=== PATIENT | female | born 1980 | race Caucasian/White ===

== ENCOUNTER 2017-08-14 15:56 | Outpatient (CLI) | payer OTHER ==
--- NOTE | 2017-08-19 09:08 | Ultrasound Report ---
ULTRASOUND PELVIS COMPLETE - TRANSABDOMINAL AND TRANSVAGINAL: INDICATION: Heavy vaginal bleeding x 1 month. COMPARISON: None similar. FINDINGS: Transabdominal and transvaginal pelvic sonography performed in this patient with irregular cycles demonstrates a 11.7 x 5 x 7.4 cm anteverted, heterogeneous uterus with an approximately 3 cm fibroid superiorly to the left, endovaginal image 10. Echogenic endometrial thickness towards the fundus approximately 1.2 cm, endovaginal image 15. However, lower uterine segment endometrium appears thickened with a complex, mixed solid and cystic appearance, measuring approximately 3.7 x 2 x 2.5 cm as on endovaginal images 18-24 with increased blood flow. A 1 cm nabothian cyst also seen. No significant pelvic free fluid. Normal, 2.7 x 1.8 x 2.5 cm right ovary. Left ovary is 4.5 x 2.7 x 4.2 cm with a 2.5 cm slightly complex/hemorrhagic cyst. CONCLUSION: 1. Myomatous uterus with a nonspecific, complex, hypervascular lower uterine segment area, as detailed above, that in isolation simulates retained products of conception or gestational trophoblastic disease. Other findings, including endometrial hyperplasia or even carcinoma also not entirely excluded at this time. TONE REGULATOR correlation and/or additional evaluation as MRI may be obtained, as appropriate. 2. Both ovaries visualized. Please note that this exam is now available to me for interpretation. Thank you for the opportunity to participate in this patient's care.
== END 2017-08-14 15:57 | disposition home or self-care (01) ==
LOC: US 15:56
PROVIDERS: ATTEND Nurse Practitioner
DX: D25.9 Leiomyoma of uterus, unspecified (principal); N88.8 Other specified noninflammatory disorders of cervix uteri; N93.9 Abnormal uterine and vaginal bleeding, unspecified
CPT/HCPCS: 76830; 76856

== ENCOUNTER 2018-10-28 17:12 | Inpatient (IN) | payer MEDICARE ==
[2018-10-28] MEDS ORDERED: TYLENOL PO ONE (17:37)
[2018-10-28] MEDS ORDERED: NACL 0.9% 1000 ML 1,000 ML IV ONE ×2 (17:37→20:00)
--- NOTE | 2018-10-28 17:51 | Emergency Department Report ---
HPI - General Chief Complaint: Vaginal Bleeding Time Seen by Provider: 10/28/18 17:36 - HPI HPI: Room 4 The patient is a 38-year-old female presenting with a chief complaint of pelvic pain and vaginal bleeding. The patient states she is and started having left-sided abdominal pain yesterday. The patient states she went to an outside hospital had an ultrasound performed which was normal and was diagnosed with UTI. Patient states after she left she had vaginal bleeding and then earlier today she noticed some tissue protruding from the vagina which then ruptured. The patient states she's gone through 1 pad today Location: Pelvis Duration: [See above] Quality: Pain Severity: Moderate Modifying factors: [see above] Context: [see above] Mode of transportation: [not driving] ED Past Medical Hx - Past Medical History Hx Arthritis: Yes Additional medical history: lupus - Surgical History Past Surgical History?: Yes Additional Surgical History: c-sectionx1 - Family History Family history: no significant - Social History Smoking Status: Never Smoker Substance Use Type: None - Medications Home Medications: Home Medications Medication Instructions Recorded Confirmed Last Taken Type RX: Hydroxychloroquine [Plaquenil] 200 mg PO DAILY 09/29/13 10/28/18 Unknown History predniSONE [Prednisone] 1 tab PO DAILY 10/28/18 10/28/18 Unknown History Amoxicillin/Potassium Clav 1 each PO BID 5 Days tablet 10/31/18 Unknown Rx [Augmentin 875-125 Tablet] ED Review of Systems ROS: Stated complaint: POSSIBLE MISCARRIAGE Other details as noted in HPI Constitutional: no symptoms reported Eyes: denies: eye pain ENT: denies: throat pain Respiratory: no symptoms reported Cardiovascular: denies: chest pain Gastrointestinal: abdominal pain Genitourinary: abnormal menses Musculoskeletal: denies: back pain Neurological: denies: headache Physical Exam - Physical Exam Vital Signs: Vital Signs 10/28/18 17:29 Temperature 100.3 F H Pulse Rate 128 H Respiratory 16 Rate Blood Pressure 136/83 O2 Sat by Pulse 100 Oximetry Physical Exam: GENERAL: The patient is well-developed well-nourished female lying on stretcher not appearing to be in acute distress. [] HEENT: Normocephalic. Atraumatic. Extraocular motions are intact. Patient has moist mucous membranes. NECK: Supple. Trachea midline CHEST/LUNGS: Clear to auscultation. There is no respiratory distress noted. HEART/CARDIOVASCULAR: Regular. There is tachycardia. There is no gallop rub or murmur. ABDOMEN: Abdomen is soft, with tenderness to palpation in the left lower quadrant, left upper quadrant. Palpation of the right upper quadrant and right lower quadrant causes pain in the left lower quadrant.. Patient has normal bowel sounds. There is no abdominal distention. SKIN: There is no rash. There is no edema. There is no diaphoresis. NEURO: The patient is awake, alert, and oriented. The patient is cooperative. The patient has normal speech MUSCULOSKELETALThere is no evidence of acute injury. ED Course Vital Signs 10/28/18 17:29 Temperature 100.3 F H Pulse Rate 128 H Respiratory 16 Rate Blood Pressure 136/83 O2 Sat by Pulse 100 Oximetry - Consultations Consultation #1: 10/28/18 19:58 OFFICE SERVICES COORDINATOR paged-case discussed with dispensing optician Trena-states will admit the patient ED Medical Decision Making - Lab Data Result diagrams: 10/29/18 22:58 10/29/18 07:49 - Differential Diagnosis incomplete Critical care attestation.: If time is entered above; I have spent that time in minutes in the direct care of this critically ill patient, excluding procedure time. ED Disposition Clinical Impression: demise, Tachycardia Disposition: - OP ADMIT IP TO THIS HOSP Is pt being admited?: Yes Does the pt Need Aspirin: No Condition: Good
[2018-10-28 18:00] LABS: Basophils % (Auto) 0.3 % (0.0-1.8); Eosinophils % (Auto) 0.1 % (0.0-4.3); Hematocrit 36.9 % (30.3-42.9); Hemoglobin 12.2 gm/dl (10.1-14.3); Lymphocytes # (Auto) 0.6 K/mm3 (1.2-5.4); Lymphocytes % (Auto) 6.1 % (13.4-35.0); Mean Corpuscular HGB Conc 33 % (30-34); Mean Corpuscular Volume 87 fl (79-97); Monocytes # (Auto) 0.4 K/mm3 (0.0-0.8); Monocytes % (Auto) 4.6 % (0.0-7.3); Platelet Count 209 K/mm3 (140-440); Red Blood Count 4.25 M/mm3 (3.65-5.03); Red Cell Distribution Width 15.5 % (13.2-15.2)
[2018-10-28 18:23] LABS: BUN/Creatinine Ratio 13; Blood Urea Nitrogen 5 mg/dL (7-17); Calcium 8.2 mg/dL (8.4-10.2); Hemolysis Index 22
[2018-10-28 20:05] LABS: Bilirubin,Urine NEG (Negative); Blood,Urine LG (Negative); Color,Urine Red (Yellow); Mucus,Urine FEW /HPF; Urobilinogen,Urine < 2.0 mg/dL (<2.0)
[2018-10-28] MEDS ORDERED: XYLOCAINE 2% INFILTRATI ONE (20:05)
[2018-10-28] MEDS ORDERED: MINERAL OIL PO PRN (20:05)
[2018-10-28] MEDS ORDERED: AMPICILLIN IV ONE (20:07)
[2018-10-28] MEDS ORDERED: NACL 0.9% 1000 ML IV ONE (20:07)
[2018-10-28] MEDS ORDERED: NACL 0.9% IV ONE (20:07)
[2018-10-28 20:10] LABS: RBC,Urine > 182.0 /HPF (0.0-6.0)
[2018-10-28] MEDS ORDERED: NACL 0.9% IV STA (20:14)
[2018-10-28] MEDS ORDERED: GENTAMICIN IV STA (20:14)
[2018-10-28] MEDS: SUBLIMAZE IV PRN (20:30)
--- NOTE | 2018-10-28 20:34 | Ultrasound Report ---
FINAL REPORT PROCEDURE: Obstetrical ultrasound. TECHNIQUE: Real-time transabdominal sonography of the uterus, placenta, amniotic fluid, adnexa, and fetus was performed with image documentation. Measurements were obtained to determine age/size. M-mode Doppler was used to document heartbeat. CPT 46827 HISTORY: Vaginal bleeding, left lower abdominal pain. COMPARISON: No prior studies are available for comparison. FINDINGS: There is an intrauterine fetus in cephalic presentation. There is no cardiac activity identified. The re is no amniotic fluid present. The cervix measures 4.3 centimeters in length. The measured pa rameters are approximately the following: Biparietal diameter 3.0 centimeters, head circumference 11. 2 centimeters, abdominal circumference 8.1 centimeters, femur length 1.9 centimeters. The calculated menstrual age is approximately 15 weeks 2 days. The placenta is posterior in location. There may be a uterine fibroid present in the left side of the uterus. IMPRESSION: Intrauterine demise.
[2018-10-28 20:39] LABS: Amphetamine Screen,Urine PRESUMPTIVE NEGATIVE; Benzodiazepines Screen,Urine PRESUMPTIVE NEGATIVE; Cannabinoid Screen,Urine PRESUMPTIVE NEGATIVE; Cocaine Screen,Urine PRESUMPTIVE NEGATIVE; Methadone Screen,Urine PRESUMPTIVE NEGATIVE
[2018-10-28] MEDS ORDERED: PITOCin/NS 30 UNIT/500ML 30 UNITS/500 ML BAG IV SCH ×2 (21:00→23:00)
[2018-10-28] MEDS ORDERED: AMPICILLIN/NS 2 GM/100 ML 2 GM/100 ML BAG IV ONE (21:00)
--- NOTE | 2018-10-28 21:07 | Event Note ---
Date: 10/28/18 Patient with fever, suspected intrauterine demise, clinical presentation suggestive of chorioamnionitis, with sepsis component. Patient is hemodynamically stable at this point in time. Reports that her "allergy" to penicillin is a rash, without symptoms of anaphylaxis, or anaphylactoid reaction, and reports she is not received penicillin and many years. Patient will be admitted to the obstetric service, under the care of Dr. Tenzin Orellana, she will be given IV fluids, ampicillin, gentamicin, blood cultures, lactic acid will be drawn. Patient was informed of need for admission for the aforementioned therapies. Vital Signs 10/28/18 10/28/18 10/28/18 17:29 17:40 17:45 Temperature 100.3 F H Pulse Rate 128 H 131 H 122 H Respiratory 16 17 25 H Rate Blood Pressure 136/83 Blood Pressure [Left] O2 Sat by Pulse 100 Oximetry 10/28/18 10/28/18 20:00 20:40 Temperature 97.8 F Pulse Rate 115 H Respiratory 24 24 Rate Blood Pressure 117/76 Blood Pressure 117/76 [Left] O2 Sat by Pulse 100 Oximetry Lab Results 10/28/18 10/28/18 10/28/18 Range/Units 17:43 17:43 17:43 WBC 9.4 (4.5-11.0) K/mm3 RBC 4.25 (3.65-5.03) M/mm3 Hgb 12.2 (10.1-14.3) gm/dl Hct 36.9 (30.3-42.9) % MCV 87 (79-97) fl MCH 29 (28-32) pg MCHC 33 (30-34) % RDW 15.5 H (13.2-15.2) % Plt Count 209 (140-440) K/mm3 Lymph % (Auto) 6.1 L (13.4-35.0) % Bond % (Auto) 4.6 (0.0-7.3) % Eos % (Auto) 0.1 (0.0-4.3) % Baso % (Auto) 0.3 (0.0-1.8) % Lymph # 0.6 L (1.2-5.4) K/mm3 Bond # 0.4 (0.0-0.8) K/mm3 Eos # 0.0 (0.0-0.4) K/mm3 Baso # 0.0 (0.0-0.1) K/mm3 Seg Neutrophils % 88.9 H (40.0-70.0) % Seg Neutrophils # 8.4 H (1.8-7.7) K/mm3 Sickle Cell Screen (Negative) Sodium 135 L (137-145) mmol/L Potassium 4.0 (3.6-5.0) mmol/L Chloride 101.2 (98-107) mmol/L Carbon Dioxide 18 L (22-30) mmol/L Anion Gap 20 mmol/L BUN 5 L (7-17) mg/dL Creatinine 0.4 L (0.7-1.2) mg/dL Estimated GFR > 60 ml/min BUN/Creatinine Ratio 13 % Glucose 97 (65-100) mg/dL Calcium 8.2 L (8.4-10.2) mg/dL HCG, Quant 49608 H (0-4) mIU/mL Urine Color (Yellow) Urine Turbidity (Clear) Urine pH (5.0-7.0) Ur Specific [place] (1.003-1.030) Urine Protein (Negative) mg/dL Urine Glucose (UA) (Negative) mg/dL Urine Ketones (Negative) mg/dL Urine Blood (Negative) Urine Nitrite (Negative) Urine Bilirubin (Negative) Urine Urobilinogen (<2.0) mg/dL Ur Leukocyte Esterase (Negative) Urine WBC (Auto) (0.0-6.0) /HPF Urine RBC (Auto) (0.0-6.0) /HPF U Epithel Cells (Auto) (0-13.0) /HPF Urine Mucus /HPF Urine Methadone Screen Ur Barbiturates Screen Ur Phencyclidine Scrn Ur Amphetamines Screen U Benzodiazepines Scrn Urine Cocaine Screen U Marijuana (THC) Screen HIV 1&2 Antibody Rapid (Non React) HIV P24 Antigen (Non React) Blood Type Ord Rhogam Gestat Weeks WEEKS 10/28/18 10/28/18 10/28/18 Range/Units 17:43 19:44 19:44 WBC (4.5-11.0) K/mm3 RBC (3.65-5.03) M/mm3 Hgb (10.1-14.3) gm/dl Hct (30.3-42.9) % MCV (79-97) fl MCH (28-32) pg MCHC (30-34) % RDW (13.2-15.2) % Plt Count (140-440) K/mm3 Lymph % (Auto) (13.4-35.0) % Bond % (Auto) (0.0-7.3) % Eos % (Auto) (0.0-4.3) % Baso % (Auto) (0.0-1.8) % Lymph # (1.2-5.4) K/mm3 Bond # (0.0-0.8) K/mm3 Eos # (0.0-0.4) K/mm3 Baso # (0.0-0.1) K/mm3 Seg Neutrophils % (40.0-70.0) % Seg Neutrophils # (1.8-7.7) K/mm3 Sickle Cell Screen (Negative) Sodium (137-145) mmol/L Potassium (3.6-5.0) mmol/L Chloride (98-107) mmol/L Carbon Dioxide (22-30) mmol/L Anion Gap mmol/L BUN (7-17) mg/dL Creatinine (0.7-1.2) mg/dL Estimated GFR ml/min BUN/Creatinine Ratio % Glucose (65-100) mg/dL Calcium (8.4-10.2) mg/dL HCG, Quant (0-4) mIU/mL Urine Color Red (Yellow) Urine Turbidity Clear (Clear) Urine pH 7.0 (5.0-7.0) Ur Specific [place] 1.005 (1.003-1.030) Urine Protein 100 mg/dl (Negative) mg/dL Urine Glucose (UA) 50 (Negative) mg/dL Urine Ketones 20 (Negative) mg/dL Urine Blood Lg (Negative) Urine Nitrite Neg (Negative) Urine Bilirubin Neg (Negative) Urine Urobilinogen < 2.0 (<2.0) mg/dL Ur Leukocyte Esterase Sm (Negative) Urine WBC (Auto) 64.0 H (0.0-6.0) /HPF Urine RBC (Auto) > 182.0 (0.0-6.0) /HPF U Epithel Cells (Auto) 2.0 (0-13.0) /HPF Urine Mucus Few /HPF Urine Methadone Screen Presumptive negative Ur Barbiturates Screen Presumptive negative Ur Phencyclidine Scrn Presumptive negative Ur Amphetamines Screen Presumptive negative U Benzodiazepines Scrn Presumptive negative Urine Cocaine Screen Presumptive negative U Marijuana (THC) Screen Presumptive negative HIV 1&2 Antibody Rapid (Non React) HIV P24 Antigen (Non React) Blood Type O POSITIVE Ord Rhogam Gestat Weeks Rh pos WEEKS 10/28/18 10/28/18 Range/Units 20:18 20:18 WBC (4.5-11.0) K/mm3 RBC (3.65-5.03) M/mm3 Hgb (10.1-14.3) gm/dl Hct (30.3-42.9) % MCV (79-97) fl MCH (28-32) pg MCHC (30-34) % RDW (13.2-15.2) % Plt Count (140-440) K/mm3 Lymph % (Auto) (13.4-35.0) % Bond % (Auto) (0.0-7.3) % Eos % (Auto) (0.0-4.3) % Baso % (Auto) (0.0-1.8) % Lymph # (1.2-5.4) K/mm3 Bond # (0.0-0.8) K/mm3 Eos # (0.0-0.4) K/mm3 Baso # (0.0-0.1) K/mm3 Seg Neutrophils % (40.0-70.0) % Seg Neutrophils # (1.8-7.7) K/mm3 Sickle Cell Screen Negative (Negative) Sodium (137-145) mmol/L Potassium (3.6-5.0) mmol/L Chloride (98-107) mmol/L Carbon Dioxide (22-30) mmol/L Anion Gap mmol/L BUN (7-17) mg/dL Creatinine (0.7-1.2) mg/dL Estimated GFR ml/min BUN/Creatinine Ratio % Glucose (65-100) mg/dL Calcium (8.4-10.2) mg/dL HCG, Quant (0-4) mIU/mL Urine Color (Yellow) Urine Turbidity (Clear) Urine pH (5.0-7.0) Ur Specific [place] (1.003-1.030) Urine Protein (Negative) mg/dL Urine Glucose (UA) (Negative) mg/dL Urine Ketones (Negative) mg/dL Urine Blood (Negative) Urine Nitrite (Negative) Urine Bilirubin (Negative) Urine Urobilinogen (<2.0) mg/dL Ur Leukocyte Esterase (Negative) Urine WBC (Auto) (0.0-6.0) /HPF Urine RBC (Auto) (0.0-6.0) /HPF U Epithel Cells (Auto) (0-13.0) /HPF Urine Mucus /HPF Urine Methadone Screen Ur Barbiturates Screen Ur Phencyclidine Scrn Ur Amphetamines Screen U Benzodiazepines Scrn Urine Cocaine Screen U Marijuana (THC) Screen HIV 1&2 Antibody Rapid Non react (Non React) HIV P24 Antigen Non react (Non React) Blood Type Ord Rhogam Gestat Weeks WEEKS
[2018-10-28 21:58] LABS: Hepatitis C Virus Antibody Non-Reactive (NonReactive)
[2018-10-28] MEDS: CLEOCIN 900 MG/50 mL 900 MG/50 ML BAG IV SCH (22:13)
[2018-10-28 22:24] LABS: Opiate Screen,Urine PRESUMPTIVE POSITIVE
--- NOTE | 2018-10-28 22:29 | History and Physical Report ---
History of Present Illness Date of examination: 10/28/18 Date of admission: 10/28/18 20:05 Chief complaint: PPROM @ 1600, IUFD by u/s in ED History of present illness: pt receives care with Dr. Flores. reports hx Lupus and arthritis Pt denies hx DVT reports surgical hx c/s 2000 OB hx: , EDC 04/06/19 1994, 1996 c/s 2000 2002, 2003, 2006, 2014 Pt reports seeing [facility] and Dr. Flores for regular care. She was seen in the ED AT [facility] yesterday and dx with UTI. States u/s showed normal . She was given pain medication. pt reports EDC 04/06/19 by provider which makes her 17w1 u/s in ED tonight shows gestational age as 15w2 Past History Past Medical History: other (Lupus & Arthritis ) Past Surgical History: section (2000) Social history: - Obstetrical History Expected Date of Delivery: 04/06/19 Actual Gestation: 17 Week(s) 1 Day(s) : 8 Para: 7 Hx # Term Pregnancies: 7 Number of Pregnancies: 0 Spontaneous Abortions: 0 Induced : 0 Number of Living Children: 7 Medications and Allergies Allergies Allergy/AdvReac Type Severity Reaction Status Date / Time Penicillins Allergy Hives Verified 09/29/13 03:20 Home Medications Medication Instructions Recorded Confirmed Last Taken Type RX: Hydroxychloroquine [Plaquenil] 200 mg PO DAILY 09/29/13 10/28/18 Unknown History predniSONE [Prednisone] 1 tab PO DAILY 10/28/18 10/28/18 Unknown History Active Meds: Active Medications Fentanyl (Sublimaze) 100 mcg IV Q2H PRN PRN Reason: Labor Pain Lactated Ringer's (Lactated Ringers) 1,000 mls @ 125 mls/hr IV DIRECT RACHEL Clindamycin HCl (Cleocin 900 Mg/50 Ml) 900 mg in 50 mls @ 100 mls/hr IV Q8HR RACHEL; Protocol Last Admin: 10/28/18 22:13 Dose: 100 mls/hr Documented by: Oxytocin/Sodium Chloride (Pitocin/Ns 30 Unit/500ml) 30 units in 500 mls @ 4 mls/hr IV TITR RACHEL; Protocol Mineral Oil (Mineral Oil) 30 ml PO QHS PRN PRN Reason: Constipation Review of Systems All systems: negative - Vital Signs Vital signs: Vital Signs Temp Pulse Resp BP Pulse Ox 100.3 F H 128 H 16 136/83 100 10/28/18 17:29 10/28/18 17:29 10/28/18 17:29 10/28/18 17:29 10/28/18 17:29 Temp Pulse Resp BP Pulse Ox 97.8 F 112 H 22 116/67 100 10/28/18 20:40 10/28/18 21:00 10/28/18 21:00 10/28/18 21:00 10/28/18 20:40 - Physical Exam Breasts: Positive: normal Cardiovascular: Other (tachycardia) Lungs: Positive: Clear to auscultation, Normal air movement Abdomen: Positive: normal appearance, soft Genitourinary (Female): Positive: normal external genitalia, normal perenium Vulva: both: normal Vagina: Positive: normal moisture (+ Fluid and blood show) Anus/Rectum: Positive: normal perianal skin Extremities: Positive: normal - Obstetrical Uterine Contraction Monitor Mode: Palpation Cervical Dilatation: 3 Cervical Effacement Percentage: 50 station: -3 Uterine Contraction Frequency (min): 2-3 Uterine Contraction Pattern: Regular Uterine Tone Measurement Phase: Contraction Results Result Diagrams: 10/28/18 17:43 10/28/18 17:43 Abnormal lab results 10/28/18 10/28/18 10/28/18 Range/Units 17:43 17:43 17:43 RDW 15.5 H (13.2-15.2) % Lymph % (Auto) 6.1 L (13.4-35.0) % Lymph # 0.6 L (1.2-5.4) K/mm3 Seg Neutrophils % 88.9 H (40.0-70.0) % Seg Neutrophils # 8.4 H (1.8-7.7) K/mm3 Sodium 135 L (137-145) mmol/L Carbon Dioxide 18 L (22-30) mmol/L BUN 5 L (7-17) mg/dL Creatinine 0.4 L (0.7-1.2) mg/dL Calcium 8.2 L (8.4-10.2) mg/dL HCG, Quant 71145 H (0-4) mIU/mL Urine WBC (Auto) (0.0-6.0) /HPF 10/28/18 Range/Units 19:44 RDW (13.2-15.2) % Lymph % (Auto) (13.4-35.0) % Lymph # (1.2-5.4) K/mm3 Seg Neutrophils % (40.0-70.0) % Seg Neutrophils # (1.8-7.7) K/mm3 Sodium (137-145) mmol/L Carbon Dioxide (22-30) mmol/L BUN (7-17) mg/dL Creatinine (0.7-1.2) mg/dL Calcium (8.4-10.2) mg/dL HCG, Quant (0-4) mIU/mL Urine WBC (Auto) 64.0 H (0.0-6.0) /HPF All other labs normal. Assessment and Plan 38y/o admitted for suspected chorio, PPROM @ 1600, demise with SAB in progress. States she has been having abd pain since yesterday. Dr. Orellana consulted. Will start IV Cleocin and Gent. Plan discussed with patient regarding dx. Will start pitocin, epidural and IV sedation as needed. All questions addressed, pt and spouse verbalize understanding. - Patient Problems (1) Inevitable spontaneous Current Visit: Yes Status: Acute (2) Chorioamnionitis in second trimester Onset Date: ~10/28/18 Current Visit: Yes Status: Acute Qualifiers: Fetus number: single or unspecified fetus Qualified Code(s): O41.1220 - Chorioamnionitis, second trimester, not applicable or unspecified (3) demise Current Visit: Yes Status: Acute (4) Lupus (systemic lupus erythematosus) Current Visit: Yes Status: Acute (5) Previous section Current Visit: Yes Status: Acute (6) Tachycardia Current Visit: Yes Status: Acute
[2018-10-29] MEDS: SUBLIMAZE IV PRN ×4 (00:05→08:12)
[2018-10-29] MEDS ORDERED: ZOFRAN ONE (00:16)
[2018-10-29] MEDS ORDERED: ZOFRAN IV ONE (00:32)
[2018-10-29] MEDS ORDERED: PITOCin/NS 20 UNIT/1000ML DRIP 20,000 MILLIUNITS/1,000 ML BAG IV ONE ×2 (01:32→08:12)
[2018-10-29] MEDS ORDERED: STADOL IV PRN (02:04)
--- NOTE | 2018-10-29 02:04 | Procedure Note ---
<NYLA POE - Last Filed: 10/29/18 03:37> OB Delivery Note - Delivery Date of Delivery: 10/29/18 Plant Operations Worker: NYLA POE Estimated blood loss: 200cc - Vaginal Delivery presentation: unknown (funic) Intrapartum events: other(please specify) (17 weeks demise) Delivery augmentation: pitocin Delivery comments: baby del spontaneously @ 0153. Cord clamped, waiting on placenta. Pitocin continues. Bleeding scant at this time. Bonding encouraged, grief is appropriate. - A at 1 minute: 0 at 5 minutes: 0 Infant Gender: Male (115gms) <DEVON JARVIS - Last Filed: 10/29/18 06:06> OB Delivery Note - Vaginal Delivery comments: Arrived to assess pt She was c/o increased pain and pressure. Placenta easily delivered. Swept the uterus [place] small amt of placenta remaining. Removed with ring forceps. Pt tolerated well. Will monitor bleeding and for any sign of retained POC Placenta to pathology. made aware of event. Will continue pt on ABX
[2018-10-29] MEDS ORDERED: STADOL IV ONE (03:07)
[2018-10-29] MEDS: CLEOCIN 900 MG/50 mL 900 MG/50 ML BAG IV SCH (06:11)
[2018-10-29] MEDS ORDERED: TYLENOL PO ONE (06:51)
--- NOTE | 2018-10-29 06:56 | Event Note ---
Addendum entered and electronically signed by DEVON JARVIS CNM 10/29/18 07:07: Consulted with CT of the abdomen and pelvis w and w/o contrast ordered. Original Note: Date: 10/29/18 (post del check) Temp 101.9 Abdomen tender Pt guarding. Minimal vaginal bleeding noted. ABX continued. Tylenol 1,000mg given po. notified.
[2018-10-29] MEDS ORDERED: GENTAMICIN 80 MG in NACL 0.9% 100 ML IV SCH (07:00)
--- NOTE | 2018-10-29 07:33 | Progress Note ---
Assessment and Plan - Patient Problems (1) Endometritis Current Visit: Yes Status: Acute Plan to address problem: ID consult Subjective - Subjective Date of service: 10/29/18 Principal diagnosis: s/p IUFD at 17 weeks, endometritis Interval history: Patient states pain she has now is the same pain she has had in abdomen/pelvis since Saturday, she denies N/V. She was evaluated at [facility] and diagnosed with UTI and was given PO antibiotics. Patient reports: appetite normal Objective - Vital Signs Latest vital signs: Vital Signs Temp Pulse Resp BP BP Pulse Ox 10/29/18 07:25 121 H 120/71 10/29/18 07:20 99.7 F H 10/29/18 07:10 117 H 111/63 10/29/18 06:55 116 H 111/66 10/29/18 06:40 115 H 114/66 10/29/18 06:25 114 H 113/66 10/29/18 06:10 116 H 117/69 10/29/18 06:00 101.9 F H 10/29/18 05:55 139 H 127/72 10/29/18 05:53 18 10/29/18 05:40 121 H 127/72 10/29/18 05:25 114 H 130/76 10/29/18 05:10 109 H 130/75 10/29/18 04:55 113 H 133/74 10/29/18 04:40 117 H 124/71 10/29/18 04:25 115 H 123/70 10/29/18 04:10 112 H 120/69 10/29/18 03:55 112 H 123/71 10/29/18 03:40 117 H 123/78 10/29/18 03:25 125 H 120/73 10/29/18 03:15 18 10/29/18 03:10 126 H 122/73 10/29/18 02:55 114 H 120/78 10/29/18 02:40 105 H 118/81 10/29/18 02:25 109 H 117/74 10/29/18 02:10 110 H 130/73 10/29/18 01:55 111 H 133/77 10/29/18 01:35 18 10/29/18 00:35 20 10/29/18 00:13 100 H 132/80 10/29/18 00:05 18 10/28/18 23:24 122 H 145/89 10/28/18 21:00 112 H 18 116/67 10/28/18 20:40 97.8 F 24 117/76 100 10/28/18 20:30 18 10/28/18 20:00 115 H 24 117/76 10/28/18 17:45 122 H 25 H 10/28/18 17:40 131 H 17 10/28/18 17:29 100.3 F H 128 H 16 136/83 100 Intake and Output 10/28/18 10/29/18 10/29/18 22:59 06:59 14:59 Intake Total 50 Balance 50 Intake: IV 50 CLEOCIN 900 MG/50 mL 900 50 mg In 50 ml @ 100 mls/hr IV Q8HR [facility] Rx#:[id number] Other: Weight 72.575 kg - Exam Breasts: Present: deferred Lungs: Present: Clear to auscultation, Normal air movement Abdomen: Present: soft, normal bowel sounds. Absent: tenderness (when palpating with stethoscope) Uterus: Present: other (difficult to palpate d/t obesity) Extremities: Present: normal. Absent: tenderness, edema - Labs Labs: Abnormal lab results 10/28/18 10/28/18 10/28/18 Range/Units 17:43 17:43 17:43 RDW 15.5 H (13.2-15.2) % Lymph % (Auto) 6.1 L (13.4-35.0) % Lymph # 0.6 L (1.2-5.4) K/mm3 Seg Neutrophils % 88.9 H (40.0-70.0) % Seg Neutrophils # 8.4 H (1.8-7.7) K/mm3 Sodium 135 L (137-145) mmol/L Carbon Dioxide 18 L (22-30) mmol/L BUN 5 L (7-17) mg/dL Creatinine 0.4 L (0.7-1.2) mg/dL Calcium 8.2 L (8.4-10.2) mg/dL HCG, Quant 34275 H (0-4) mIU/mL Urine WBC (Auto) (0.0-6.0) /HPF 10/28/18 Range/Units 19:44 RDW (13.2-15.2) % Lymph % (Auto) (13.4-35.0) % Lymph # (1.2-5.4) K/mm3 Seg Neutrophils % (40.0-70.0) % Seg Neutrophils # (1.8-7.7) K/mm3 Sodium (137-145) mmol/L Carbon Dioxide (22-30) mmol/L BUN (7-17) mg/dL Creatinine (0.7-1.2) mg/dL Calcium (8.4-10.2) mg/dL HCG, Quant (0-4) mIU/mL Urine WBC (Auto) 64.0 H (0.0-6.0) /HPF
[2018-10-29 08:05] LABS: Basophils % (Auto) 0.1 % (0.0-1.8); Hemoglobin 9.4 gm/dl (10.1-14.3); Lymphocytes # (Auto) 0.7 K/mm3 (1.2-5.4); Lymphocytes % (Auto) 6.6 % (13.4-35.0); Mean Corpuscular HGB Conc 34 % (30-34); Mean Corpuscular Volume 87 fl (79-97); Monocytes # (Auto) 0.6 K/mm3 (0.0-0.8); Monocytes % (Auto) 5.4 % (0.0-7.3); Platelet Count 166 K/mm3 (140-440); Red Blood Count 3.21 M/mm3 (3.65-5.03); Red Cell Distribution Width 15.6 % (13.2-15.2)
[2018-10-29 08:48] LABS: Albumin 2.4 g/dL (3.9-5)
[2018-10-29] MEDS ORDERED: PITOCin/NS 20 UNIT/1000ML DRIP 20 UNITS/1,000 ML BAG IV SCH (09:00)
[2018-10-29 09:09] LABS: BUN/Creatinine Ratio 13; Blood Urea Nitrogen 4 mg/dL (7-17); Hemolysis Index 34
--- NOTE | 2018-10-29 09:15 | Event Note ---
Date: 10/29/18 s/w Dr. Delacruz who recommends antibiotic change, see orders
[2018-10-29 09:22] LABS: Alanine Aminotransferase 7 units/L (7-56)
--- NOTE | 2018-10-29 09:33 | Cat Scan Report ---
CT ABDOMEN PELVIS WITH CONTRAST: HISTORY: Evaluate for abscess. COMPARISON: OB ultrasound dated 10/28/18. Noncontrast CT abdomen and pelvis dated . TECHNIQUE: Helical CT in 1.25mm intervals following IV contrast. Sagittal and coronal reconstructions. FINDINGS: Lung bases: Normal heart size. Minor bibasilar atelectatic changes are noted. Liver: Normal. Biliary system: There are multiple small calcified gallstones within the gallbladder. The largest stone measures 6 mm. No evidence for gallbladder wall thickening, inflammation or surrounding fluid. No biliary dilatation. Pancreas: Normal. Spleen: Normal. Kidneys/ureters/bladder: There is moderate right hydronephrosis. This appears to be secondary to external compression in the pelvis from the enlarged uterus. There is no evidence for renal cystic disease, calculus or mass. The left collecting system and bladder are unremarkable. Adrenal glands: Normal. Aorta: Normal. Intestines: Within normal limits. Appendix: Not confidently identified. Pelvic viscera: The uterus is markedly enlarged measuring 16.6 x 9.3 x 15.9. There is a hypodense round mass like lesion in the left lateral wall of the uterus measuring 10 cm in diameter. This presumably represents a large fibroid with cystic degeneration although it is new since the CT of abdomen and pelvis from 2012. The endometrium is markedly thickened and complex with irregular borders. The endometrial stripe measures 4.2 cm in thickness. I believe I see the ovaries which are unremarkable. Ascites: Trace. Adenopathy: None. Musculoskeletal: Intact. IMPRESSION: The uterus is markedly enlarged as described. There appears to be a large fibroid in the left lateral wall measuring up to 10 cm. The endometrium is markedly abnormal demonstrating thickening and irregular borders. The significance of this is unclear. This could represent hemorrhagic products or possibly an early infectious process. No endometrial gas is identified. Moderate right hydronephrosis which appears to be secondary to external compression of the distal right ureter from the uterus. Cholelithiasis. No pelvic abscess is identified.
[2018-10-29] MEDS ORDERED: GENTAMICIN IV SCH (10:00)
[2018-10-29] MEDS ORDERED: NACL 0.9% IV SCH (10:00)
--- NOTE | 2018-10-29 10:55 | Consultation ---
History of Present Illness - Reason for Consult Consult date: 10/29/18 Sepsis - History of Present Illness This patient is a 38 year old female that was admitted to [facility] on 10/28 2018 for suspected PPROM. demise with SAB in progress.. Ultrasound in the ED shown gestational age at 15 weeks and 2 days. At 16 weeks, demise with SAB in progress.. Pitocin was started, baby delivered spontaneously at 0153. On 10/29/18 patient was complaining of abdominal tenderness and a CT of abdomen and pelvis were consistent with normal postpardum uterus. Today, WBC 10.2, Creatinine 0.3, Highest temperature 101.9, HR 115, BP 113/64,. U/A is consistent with a UTI Blood cultures were drawn and are in progress. Review of Systems: General: + fevers, chills no rigors HEENT: no new visual disturbance Respiratory: No cough, sputum, hemoptysis or shortness of breath Cardiovascular: No chest pain, syncope Gastrointestinal: No nausea, vomiting. left lower quadrant abdominal pain Genitourinary: No dysuria or hematuria Musculoskeletal: No new or worsening neck pain or back pain Neurologic: No headaches, seizures Hematologic: No easy bruising or bleeding Endocrine: No night sweats. Skin: negative for rash, jaundice Psychiatric: No suicidal or homicidal ideation Past History Social history: Medications and Allergies Allergies Allergy/AdvReac Type Severity Reaction Status Date / Time Penicillins Allergy Hives Verified 09/29/13 03:20 Home Medications Medication Instructions Recorded Confirmed Last Taken Type Hydroxychloroquine [Plaquenil] 200 mg PO DAILY 09/29/13 10/28/18 Unknown History predniSONE [Prednisone] 1 tab PO DAILY 10/28/18 10/28/18 Unknown History Active Meds: Active Medications Acetaminophen (Tylenol) 650 mg PO Q4H PRN PRN Reason: Pain MILD(1-3)/Fever >100.5/WOODS Acetaminophen/Hydrocodone Bitart ([place] 5/325) 2 each PO Q6H PRN PRN Reason: Pain, Moderate (4-6) Bisacodyl (Dulcolax) 10 mg SD BID PRN PRN Reason: Constipation Diphenhydramine HCl (Benadryl) 25 mg PO Q6H PRN PRN Reason: Itching Diphtheria/Tetanus/Acell Pertussis (Boostrix) 0.5 ml IM .ONCE ONE Stop: 10/30/18 10:45 Docusate Sodium (Colace) 100 mg PO BID RACHEL Hydroxychloroquine Sulfate (Plaquenil) 200 mg PO QDAY RACHEL Lactated Ringer's (Lactated Ringers) 1,000 mls @ 125 mls/hr IV DIRECT RACHEL Levofloxacin/Dextrose (Levaquin 750mg/150ml) 750 mg in 150 mls @ 100 mls/hr IV Q24HR RACHEL; Protocol Metronidazole (Flagyl 500 Mg/100 Ml) 500 mg in 100 mls @ 100 mls/hr IV Q8HR RACHEL; Protocol Ibuprofen (Motrin) 600 mg PO Q6H RACHEL Magnesium Hydroxide (Milk Of Magnesia) 30 ml PO HS PRN PRN Reason: Constipation Measles/Mumps/Rubella Vaccine Live (M-M-R Ii Vaccine) 0.5 ml SUB-Q .ONCE ONE Stop: 10/30/18 10:45 Prednisone (Deltasone) 5 mg PO QDAY RACHEL Promethazine HCl (Phenergan) 25 mg PO Q6H PRN PRN Reason: Nausea And Vomiting Sodium Chloride (Sodium Chloride Flush Syringe 10 Ml) 10 ml IV PRN NR Physical Examination - Physical Exam Narrative exam: Constitutional: Alert, cooperative. mild distress observed. Head, Ears, Nose: Normocephalic, atraumatic. External ears, nose normal Breast: no mastitis, warmth or tenderness, soft no lumps, not lactating , no nipple drainage Eyes: Conjunctivae/corneas clear. No icterus. No ptosis. Neck: Supple, no meningeal signs Oral: dentition good, no . thrush Cardiovascular: S1, S2 normal. Respiratory: Good air entry, clear to auscultation bilaterally GI: Soft, normal bowel sounds, left lower quadrant tenderness on exam, Fundus firm , + 2 below umbilicus : Moderate reddish brown locia, no odor Musculoskeletal: No pedal edema, no cyanosis. Skin: No rash or abscess. Hem/Lymphatic: No palpable cervical or supraclavicular nodes. No lymphangitis Psych: Mood ok. Affect normal Neurological: Awake, alert, oriented. - Constitutional Vitals: Vital Signs Temp Pulse Resp BP Pulse Ox 99.7 F H 118 H 18 104/63 100 10/29/18 07:20 10/29/18 08:25 10/29/18 05:53 10/29/18 08:25 10/28/18 20:40 Temperature -Last 24 Hours Temperature 99.7 F Temperature 101.9 F Temperature 97.8 F Temperature 100.3 F Results - Labs CBC & Chem 7: 10/29/18 07:49 10/29/18 07:49 Labs: Abnormal lab results 10/28/18 10/28/18 10/28/18 Range/Units 17:43 17:43 17:43 RBC (3.65-5.03) M/mm3 Hgb (10.1-14.3) gm/dl Hct (30.3-42.9) % RDW 15.5 H (13.2-15.2) % Lymph % (Auto) 6.1 L (13.4-35.0) % Lymph # 0.6 L (1.2-5.4) K/mm3 Seg Neutrophils % 88.9 H (40.0-70.0) % Seg Neutrophils # 8.4 H (1.8-7.7) K/mm3 Sodium 135 L (137-145) mmol/L Chloride (98-107) mmol/L Carbon Dioxide 18 L (22-30) mmol/L BUN 5 L (7-17) mg/dL Creatinine 0.4 L (0.7-1.2) mg/dL Calcium 8.2 L (8.4-10.2) mg/dL Total Protein (6.3-8.2) g/dL Albumin (3.9-5) g/dL HCG, Quant 71308 H (0-4) mIU/mL Urine WBC (Auto) (0.0-6.0) /HPF 10/28/18 10/29/18 10/29/18 Range/Units 19:44 07:49 07:49 RBC 3.21 L (3.65-5.03) M/mm3 Hgb 9.4 L (10.1-14.3) gm/dl Hct 28.0 L D (30.3-42.9) % RDW 15.6 H (13.2-15.2) % Lymph % (Auto) 6.6 L (13.4-35.0) % Lymph # 0.7 L (1.2-5.4) K/mm3 Seg Neutrophils % 87.9 H (40.0-70.0) % Seg Neutrophils # 9.0 H (1.8-7.7) K/mm3 Sodium (137-145) mmol/L Chloride 108.7 H (98-107) mmol/L Carbon Dioxide 13 L (22-30) mmol/L BUN 4 L (7-17) mg/dL Creatinine 0.3 L (0.7-1.2) mg/dL Calcium 7.0 L (8.4-10.2) mg/dL Total Protein 5.3 L (6.3-8.2) g/dL Albumin 2.4 L (3.9-5) g/dL HCG, Quant (0-4) mIU/mL Urine WBC (Auto) 64.0 H (0.0-6.0) /HPF Assessment and Plan Imaging 10/29/18: Abdomen and Pelvis CT: large fibroid in the left lateral wall measuring up to 10 cm. The endometrium is markedly abnormal demonstrating thickening and irregular borders. The significance of this is unclear. This could represent hemorrhagic products or possibly an early infectious process No pelvic Absces is identified. Cultures: 10/28/2018 Blood: culture in progress A/P: 38-year-old female G8, P7, admitted to Labor and Delivery on 10/28/18 for PPROM, of a 15 week and 2 day, intrauterine demise. On 10/29/18 patient was complaining of abdominal tenderness and a CT of abdomen and pelvis were consistent with normal postpardum uterus. Patient now presents with: 1. Sepsis: Evidenced by fever and tachycardia. Etiology most likely UTI +/- chorioamnionitis. Currently being treated with levofloxacin and flagyl. Blood cultures in progress. no leukocytosis. CT appears consistent with normal postpardum uterus. no abscess identified.. 2. Urinary Tract Infection with right hydronephrosis- u/a consistent with UTI. Urine culture pending. 3. Intrauterine Demise - s/p PPROM on 10/28/18 15 week fetus. 4. Substance Abuse- positive urine opiate screen. Plan - f/u blood cultures and urine cultures - CRP - continue levaquin and flagyl - may require D+C if clinically not better, if so please send deep intrauterine cultures - renal US ordered to evaluate hydronephrosis - monitor fever [facility] M: [phone] O:[phone]
[2018-10-29] MEDS ORDERED: TYLENOL PO PRN (11:00)
[2018-10-29] MEDS ORDERED: BENADRYL PO PRN (11:00)
[2018-10-29] MEDS ORDERED: DULCOLAX PR PRN (11:00)
[2018-10-29] MEDS ORDERED: SODIUM CHLORIDE FLUSH SYRINGE 10 ML IV PRN (11:30)
[2018-10-29] MEDS ORDERED: PHENERGAN PO PRN (11:30)
[2018-10-29] MEDS: NORCO 5/325 PO PRN ×2 (11:32→17:34)
[2018-10-29] MEDS: DELTASONE PO SCH (11:35)
[2018-10-29] MEDS: PLAQUENIL PO SCH (11:36)
[2018-10-29] MEDS: LACTATED RINGERS 1,000 ML IV SCH (11:39)
[2018-10-29] MEDS: LEVAQUIN 750MG/150ML 750 MG/150 ML BAG IV SCH (11:39)
[2018-10-29] MEDS ORDERED: IBUPROFEN PO SCH (12:00)
[2018-10-29] MEDS ORDERED: AFLURIA QUAD 2018-2019 SYRINGE IM ONE (12:00)
[2018-10-29] MEDS ORDERED: TORADOL IV ONE (14:45)
[2018-10-29] MEDS: FLAGYL 500 MG/100 ML 500 MG/100 ML BAG IV SCH ×2 (14:59→23:25)
[2018-10-29] MEDS ORDERED: TYLENOL PO SCH (15:00)
[2018-10-29] MEDS ORDERED: TORADOL IV SCH (18:00)
[2018-10-29] MEDS ORDERED: MILK OF MAGNESIA PO PRN (22:00)
[2018-10-29 23:12] LABS: Hematocrit 26.1 % (30.3-42.9); Hemoglobin 8.7 gm/dl (10.1-14.3)
--- NOTE | 2018-10-29 23:12 | Ultrasound Report ---
FINAL REPORT EXAM: US RENAL BILAT HISTORY: evaluate for hydronephrosis TECHNIQUE: Real-time sonography was performed of the kidneys and bladder and images are submitted fo r interpretation. PRIORS: None. FINDINGS: There is moderate right hydronephrosis. The right renal pelvis measures 3.5 cm in transverse dimensio n. Otherwise, the right kidney appears normal measuring 11.5 x 5.5 x 5.8 cm. There is a 1.2 cm cyst in the mid left kidney. Otherwise, the left kidney appears normal measuring 13 .0 x 5.8 x 4.5 cm. The bladder appears normal. IMPRESSION: Moderate right hydronephrosis 1.2 cm simple cyst in the mid left kidney.
[2018-10-29] MEDS: COLACE PO SCH (23:30)
[2018-10-29] MEDS: IBUPROFEN PO SCH (23:30)
--- NOTE | 2018-10-30 03:17 | Event Note ---
Date: 10/30/18 S/w patient re: states slight pain LLQ, she was informed hydronephrosis involved the right ureter. This can be a common occurrence with a uterus especially with a a 10cm fibroid. We discussed the low BP's and although stable I'm concerned about giving narcotics if pain is mild. Will try an abd binder, she voiced understanding and agrees with plan of care.
[2018-10-30] MEDS ORDERED: BOOSTRIX IM ONE (06:00)
[2018-10-30] MEDS: IBUPROFEN PO SCH ×3 (07:05→20:57)
[2018-10-30] MEDS: FLAGYL 500 MG/100 ML 500 MG/100 ML BAG IV SCH (07:06)
--- NOTE | 2018-10-30 08:07 | Progress Note ---
Assessment and Plan Patient resting in bed. Reports pain in left lower abdomen is still /, describes it as sharp. Denies cramping. Taking ibuprofen now. Reports that the "stronger meds were working better for the pain but they can't give them to me because my blood pressure is too low". Patient reports bleeding is scant to small. No other complaints or concerns voiced. Patient requests to go home today. VSSAF (last elevated temp 100.6 @0925 on 10/29). H&H 8.7/26.1- asymptomatic, blood cultures neg after 24 hours. Will wait for urine culture results and consult with Dr. Rolon regarding discharge. Continue current POC. - Patient Problems (1) SAB (spontaneous ) Current Visit: Yes Status: Acute (2) Endometritis Current Visit: Yes Status: Acute (3) Lupus (systemic lupus erythematosus) Current Visit: Yes Status: Acute (4) Anemia due to acute blood loss Current Visit: Yes Status: Acute Subjective - Subjective Date of service: 10/30/18 Principal diagnosis: s/p IUFD at 17 weeks, endometritis Patient reports: appetite normal, voiding normally, pain poorly controlled, ambulating normally, no nauseated Objective - Vital Signs Latest vital signs: Vital Signs Temp Pulse Resp BP BP 10/30/18 04:05 98.4 F 74 16 102/78 10/30/18 00:00 98.4 F 82 16 99/74 10/29/18 19:30 98.6 F 81 18 83/54 10/29/18 16:22 98.1 F 84 18 86/53 10/29/18 09:25 100.6 F H 107 H 18 98/54 10/29/18 08:25 118 H 104/63 10/29/18 08:10 112 H 98/57 Intake and Output 10/29/18 10/29/18 10/30/18 15:59 23:59 07:59 Intake Total 100 780 100 Output Total 550 300 Balance -450 480 100 Intake: IV 100 100 FLAGYL 500 MG/100 ML 500 100 100 mg In 100 ml @ 100 mls/hr IV Q8HR [facility] Rx#: [id number] Oral 780 Output: Urine 550 300 Void 550 300 Other: Total, Intake Amount 300 Total, Output Amount 300 300 - Exam Lungs: Present: Normal air movement Abdomen: Present: normal appearance Uterus: Present: normal Extremities: Present: normal - Labs Labs: Abnormal lab results 10/29/18 10/29/18 10/29/18 Range/Units 07:49 07:49 15:40 RBC 3.21 L (3.65-5.03) M/mm3 Hgb 9.4 L (10.1-14.3) gm/dl Hct 28.0 L D (30.3-42.9) % RDW 15.6 H (13.2-15.2) % Lymph % (Auto) 6.6 L (13.4-35.0) % Lymph # 0.7 L (1.2-5.4) K/mm3 Seg Neutrophils % 87.9 H (40.0-70.0) % Seg Neutrophils # 9.0 H (1.8-7.7) K/mm3 Chloride 108.7 H (98-107) mmol/L Carbon Dioxide 13 L (22-30) mmol/L BUN 4 L (7-17) mg/dL Creatinine 0.3 L (0.7-1.2) mg/dL Calcium 7.0 L (8.4-10.2) mg/dL C-Reactive Protein 18.90 H (0.00-1.30) mg/dL Total Protein 5.3 L (6.3-8.2) g/dL Albumin 2.4 L (3.9-5) g/dL 10/29/18 Range/Units 22:58 RBC (3.65-5.03) M/mm3 Hgb 8.7 L (10.1-14.3) gm/dl Hct 26.1 L (30.3-42.9) % RDW (13.2-15.2) % Lymph % (Auto) (13.4-35.0) % Lymph # (1.2-5.4) K/mm3 Seg Neutrophils % (40.0-70.0) % Seg Neutrophils # (1.8-7.7) K/mm3 Chloride (98-107) mmol/L Carbon Dioxide (22-30) mmol/L BUN (7-17) mg/dL Creatinine (0.7-1.2) mg/dL Calcium (8.4-10.2) mg/dL C-Reactive Protein (0.00-1.30) mg/dL Total Protein (6.3-8.2) g/dL Albumin (3.9-5) g/dL
[2018-10-30] MEDS ORDERED: PLAQUENIL PO SCH (10:00)
[2018-10-30] MEDS ORDERED: M-M-R II VACCINE SUB-Q ONE (11:00)
[2018-10-30] MEDS: PLAQUENIL PO SCH (11:31)
[2018-10-30] MEDS: DELTASONE PO SCH (11:31)
[2018-10-30] MEDS ORDERED: TYLENOL ONE (12:08)
[2018-10-30] MEDS: TYLENOL PO SCH ×2 (12:09→22:12)
--- NOTE | 2018-10-30 13:55 | Progress Note ---
Assessment and Plan Imaging 10/29/18: Abdomen and Pelvis CT: large fibroid in the left lateral wall measuring up to 10 cm. The endometrium is markedly abnormal demonstrating thickening and irregular borders. The significance of this is unclear. This could represent hemorrhagic products or possibly an early infectious process No pelvic Absces is identified. Cultures: 10/28/2018 Blood: no growth so far 10/29/2018 Urine 10-100K usual skin dee dee A/P: 38-year-old female G8, P7, admitted to Labor and Delivery on 10/28/18 for PPROM, of a 15 week and 2 day, intrauterine demise. On 10/29/18 patient was complaining of abdominal tenderness and a CT of abdomen and pelvis were consistent with normal postpardum uterus. Patient now presents with: 1. Sepsis: improving. Etiology most likely UTI +/- chorioamnionitis. Currently being treated with levofloxacin and flagyl. Blood cultures in progress. No leukocytosis. CT appears consistent with normal postpardum uterus. no abscess identified. CRP=18 2. Urinary Tract Infection with right hydronephrosis- u/a consistent with UTI. 10/29/2018 Urine 10-100K usual skin dee dee. Renal US showed moderate right hydronephrosis 3. Intrauterine Demise - s/p PPROM on 10/28/18 15 week fetus. 4. Remote penicillin allergy - takes PO amoxicillin w/o reactions Plan - f/u blood cultures - stop levaquin and flagyl - start unasyn IV - patient takes amox PO - monitor fever Dr Short will be rounding in the morning Shelly Delacruz MD [facility] C: [phone] O: [phone] F: [phone] Subjective Date of service: 10/30/18 Principal diagnosis: s/p IUFD at 17 weeks, endometritis Interval history: Patient reports feeling remarkably better. No fever for 18h. No abdominal pain. Objective - Exam Narrative Exam: Constitutional: Alert, cooperative. mild distress observed. Head, Ears, Nose: Normocephalic, atraumatic. External ears, nose normal Breast: no mastitis, warmth or tenderness, soft no lumps, not lactating , no nipple drainage Eyes: Conjunctivae/corneas clear. No icterus. No ptosis. Neck: Supple, no meningeal signs Oral: dentition good, no . thrush Cardiovascular: S1, S2 normal. Respiratory: Good air entry, clear to auscultation bilaterally GI: Soft, normal bowel sounds, left lower quadrant tenderness on exam, Fundus firm , + 2 below umbilicus : Mild reddish brown locia, no odor Musculoskeletal: No pedal edema, no cyanosis. Skin: No rash or abscess. Hem/Lymphatic: No palpable cervical or supraclavicular nodes. No lymphangitis Psych: Mood ok. Affect normal Neurological: Awake, alert, oriented. - Constitutional Vitals: Vital Signs Temp Pulse Resp BP Pulse Ox 98.4 F 89 20 97/63 99 10/30/18 11:59 10/30/18 11:59 10/30/18 11:59 10/30/18 11:59 10/30/18 11:59 Temperature -Last 24 Hours Temperature 98.4 F Temperature 98.2 F Temperature 98.4 F Temperature 98.4 F Temperature 98.6 F Temperature 98.1 F - Labs CBC & Chem 7: 10/29/18 22:58 10/29/18 07:49 Labs: Abnormal lab results 10/29/18 10/29/18 Range/Units 15:40 22:58 Hgb 8.7 L (10.1-14.3) gm/dl Hct 26.1 L (30.3-42.9) % C-Reactive Protein 18.90 H (0.00-1.30) mg/dL
[2018-10-30] MEDS: UNASYN/NS 3 GM/100 ML 3 GM/100 ML BAG IV SCH ×3 (15:24→23:25)
[2018-10-30] MEDS: LEVAQUIN 750MG/150ML 750 MG/150 ML BAG IV SCH (16:16)
[2018-10-30] MEDS: LACTATED RINGERS 1,000 ML IV SCH (17:28)
[2018-10-30] MEDS: ROBITUSSIN PO PRN ×3 (17:44→22:12)
--- NOTE | 2018-10-30 21:29 | Event Note ---
Date: 10/30/[address] Delacruz's recommendations. We will change antibiotics as recommended. Patient is complaining of some pelvic pain believed secondary to fibroid. Discussed the diagnosis of fibroids. Questions answered. Patient states she does have a national account representative and she will follow up with after discharge.
[2018-10-30] MEDS: COLACE PO SCH (22:13)
[2018-10-31] MEDS: TYLENOL PO SCH (04:28)
--- NOTE | 2018-10-31 08:33 | Progress Note ---
Assessment and Plan - Patient Problems (1) Anemia due to acute blood loss Current Visit: Yes Status: Acute Plan to address problem: -stable (2) Endometritis Current Visit: Yes Status: Acute Plan to address problem: -all cultures are negative -pt has been afebrile. Last temp 10/29/17 at 0930. -d/c home when cleared by ID and recommendations for po meds has been made. (3) demise Current Visit: Yes Status: Acute Plan to address problem: -f/u for routine post parturm care -doing well and cleared for d/c to home. Subjective - Subjective Date of service: 10/31/18 Principal diagnosis: s/p IUFD at 17 weeks, endometritis Interval history: Pt is stable from ob standpoint and ready for d/c home. Will await ID recommendations for po meds for d/c home. She has an ob that she has seen this gestation and will f/u with them pp. Patient reports: appetite normal, voiding normally, pain well controlled Objective - Vital Signs Latest vital signs: Vital Signs Temp Pulse Resp BP BP Pulse Ox 10/31/18 08:00 99 F 82 16 112/66 10/31/18 04:00 98.7 F 74 16 112/72 10/30/18 23:30 98.4 F 66 16 117/74 10/30/18 19:30 98.7 F 66 18 102/62 10/30/18 15:53 98.1 F 85 20 101/68 97 10/30/18 11:59 98.4 F 89 20 97/63 99 10/30/18 08:38 98.2 F 102 H 20 95/64 98 Intake and Output 10/30/18 10/31/18 10/31/18 22:59 06:59 14:59 Intake Total 980 300 Balance 980 300 Intake: IV 200 UNASYN/NS 3 GM/100 ML 3 200 gm In 100 ml @ 200 mls/hr IV Q6HR [facility] Rx#: [id number] Oral 480 300 Intake, Free Water 300 Other: Total, Intake Amount 240 100 Voiding Method Toilet # Voids 1 Void 1 2 - Exam Cardiovascular: Present: Normal S1, Normal S2 Lungs: Present: Clear to auscultation, Normal air movement Abdomen: Present: normal appearance, soft. Absent: distention, tenderness, guarding Extremities: Present: normal. Absent: tenderness, edema
[2018-10-31] MEDS: COLACE PO SCH (09:19)
[2018-10-31] MEDS: DELTASONE PO SCH (09:19)
[2018-10-31] MEDS: PLAQUENIL PO SCH (09:20)
[2018-10-31] MEDS ORDERED: PERCOCET 5/325 PO ONE (09:30)
--- NOTE | 2018-10-31 10:42 | Progress Note ---
Assessment and Plan Cultures: 10/28/2018 Blood: no growth so far 10/29/2018 Urine 10-100K usual skin dee dee A/P: 38-year-old female G8, P7, admitted to Labor and Delivery on 10/28/18 for PPROM, of a 15 week and 2 day, intrauterine demise. On 10/29/18 patient was complaining of abdominal tenderness and a CT of abdomen and pelvis were consistent with normal postpardum uterus. Patient now presents with: 1. Sepsis: resolved. Tolerating Unasyn. Etiology most likely UTI +/- chorioamnionitis. CT appears consistent with normal postpardum uterus. no abscess identified. CRP=18 2. Urinary Tract Infection with right hydronephrosis- u/a consistent with UTI. 10/29/2018 Urine 10-100K usual skin dee dee. Renal US showed moderate right hydronephrosis related to enlarged uterus. 3. Intrauterine Demise - s/p PPROM on 10/28/18 15 week fetus. 4. Remote penicillin allergy - takes PO amoxicillin w/o reactions. Tolerating Unasyn as well. Plan - patient afebrile, no leucocytosis, OK to discharge from ID standpoint - PO Augmentin 875 mg BID x 5 days (prescription printed and given to community health education coordinator) - follow up with OB - ID clinic follow up PRN Please call with questions. Toby Short MD [facility] [place] C: [phone] O: [phone] F: [phone] Subjective Date of service: 10/31/18 Principal diagnosis: s/p IUFD at 17 weeks, endometritis Interval history: Denies any fever or chills. No nausea, vomiting. Tolerating Unasyn without issues. Hoping to go home today. Has some left sided abdominal pain. Objective - Exam Narrative Exam: Constitutional: Alert, cooperative no distress Head, Ears, Nose: Normocephalic, atraumatic. External ears, nose normal Eyes: Conjunctivae/corneas clear. No icterus. No ptosis. Neck: Supple, no meningeal signs Oral: dentition fair, no thrush Cardiovascular: S1, S2 normal. Respiratory: Good air entry, clear to auscultation bilaterally GI: Soft, normal bowel sounds, left lower quadrant tenderness on exam. No right CVA tenderness Musculoskeletal: No pedal edema, no cyanosis. Skin: No rash or abscess. Hem/Lymphatic: No palpable cervical or supraclavicular nodes. No lymphangitis Psych: Mood ok. Affect normal Neurological: Awake, alert, oriented. - Constitutional Vitals: Vital Signs Temp Pulse Resp BP Pulse Ox 99 F 82 16 112/66 97 10/31/18 08:00 10/31/18 08:00 10/31/18 08:00 10/31/18 08:00 10/30/18 15:53 Temperature -Last 24 Hours Temperature 99 F Temperature 98.7 F Temperature 98.4 F Temperature 98.7 F Temperature 98.1 F Temperature 98.4 F - Labs CBC & Chem 7: 10/29/18 22:58 10/29/18 07:49
[2018-10-31] MEDS: ROBITUSSIN PO PRN (11:30)
[2018-10-31] MEDS: UNASYN/NS 3 GM/100 ML 3 GM/100 ML BAG IV SCH (12:29)
--- NOTE | 2018-10-31 13:00 | Discharge Summary ---
Providers - Providers Date of Admission: 10/28/18 20:05 Date of discharge: 10/31/18 Attending physician: DAVON MCCRAY 10/29/18 07:14 Consult to Physician [CONS] Routine Comment: Consulting Provider: KRISTIE AZUL Physician Instructions: Reason For Exam: infection Primary care physician: GUEST SERVICES REPRESENTATIVE Hospitalization Reason for admission: IUFD (@ 17 weeks chorio/ endometritis), other Delivery: Procedure: other (vaginal delivery) Procedure details: see delivery note Episiotomy: none Laceration: none Other procedures: none Hospital course: Pt admitted and diagnosed with SROM, IUFD at 17 wks and fever presumed to be due to chorio. She was induced and delivered vaginally and got antibx therapy for several days. All cx blood and urine were negative. She was seen and cleared by ID for d/c. Pt is to con't po meds provided by ID provider and f/u with her laser operator or with [facility]. Pt doing well and ready for d/c home at this time. Condition at discharge: Good Disposition: DC-01 TO HOME OR SELFCARE - Discharge Diagnoses (1) Anemia due to acute blood loss Status: Acute (2) Endometritis Status: Acute (3) demise Status: Acute Plan - Discharge Medications Prescriptions: Amoxicillin/Potassium Clav [Augmentin 875-125 Tablet] 1 each PO BID 5 Days tablet - Provider Discharge Summary Additional instructions: [] Smoking cessation referral if applicable(refer to patient education folder for contact #) [] Refer to [facility]'s [facility] Booklet Call your doctor immediately for: * Fever > 100.5 * Heavy vaginal bleeding ( >1 pad per hour) * Severe persistent headache * Shortness of breath * Reddened, hot, painful area to leg or breast * Drainage or odor from incision. * Keep incision clean and dry at all times and follow doctor's instructions regarding bathing/showering - Follow up plan Follow up: PRIMARY CARE, [Primary Care Provider] - 3-5 Days
[2018-10-31 14:02] VITALS: BP 121/71
== END 2018-10-31 14:15 | disposition home or self-care (01) | DRG 779 ==
LOC: ED 17:12 → LD 20:05 → OB 10-29 09:14
PROVIDERS: ADMIT Obstetrics & Gynecology; ATTEND Obstetrics & Gynecology
PROC: 10E0XZZ Delivery of Products of Conception, External Approach (ICD-10-PCS; principal; 2018-10-29)
DX: O03.9 Complete or unspecified spontaneous abortion without complication (principal); O41.1220 Chorioamnionitis, second trimester, not applicable or unspecified; A41.9 Sepsis, unspecified organism; D62 Acute posthemorrhagic anemia; N13.6 Pyonephrosis; O23.42 Unspecified infection of urinary tract in pregnancy, second trimester; O23.02 Infections of kidney in pregnancy, second trimester; O23.592 Infection of other part of genital tract in pregnancy, second trimester; O99.322 Drug use complicating pregnancy, second trimester; O98.812 Other maternal infectious and parasitic diseases complicating pregnancy, second trimester; O90.81 Anemia of the puerperium; O34.12 Maternal care for benign tumor of corpus uteri, second trimester; M19.90 Unspecified osteoarthritis, unspecified site; M32.9 Systemic lupus erythematosus, unspecified; F19.10 Other psychoactive substance abuse, uncomplicated; Z3A.17 17 weeks gestation of pregnancy; Z79.899 Other long term (current) drug therapy; N71.9 Inflammatory disease of uterus, unspecified
CPT/HCPCS: 36415; 74177; 76770; 76805; 80048; 80053; 80307; 81001; 82140; 84702; 85014; 85018; 85025; 85660; 86140; 86592; 86706; 86762; 86803; 86850; 86900; 86901; 87040; 87086; 87806; 88305; 90686; 96374; G0378; J0290; J0295; J0595; J1580; J1885; J1956; J2405; J2590; J3010; J7030; J7120; J7512; Q9967